=== PATIENT | female | born 1955 | race African-American/Black ===

== ENCOUNTER 2020-03-09 15:45 | Inpatient (IN) | payer BC ==
[~2020-03-09] VITALS: Ht 165.1 cm; Wt 137.0 kg
[2020-03-09 16:42] LABS: BASOPHILS % 1.1 % (0.0-2.0); EOSINOPHILS % 5.2 % (0.0-5.0); HEMATOCRIT. 40.8 % (36.0-48.0); HEMOGLOBIN. 13.7 g/dL (12.0-16.0); LYMPHOCYTES % 42.6 % (20.0-50.0); MEAN CORPUSCULAR HEMOGLOBIN 29.7 pg (28.0-32.0); MEAN CORPUSCULAR VOLUME 88.6 fL (81.0-99.0); MEAN PLATELET VOLUME 8.7 fl (7.4-10.4); MONOCYTES % 6.7 % (2.0-8.0); NEUTROPHILS % 44.4 % (40.0-76.0); PLATELET 301 x1000/uL (130-400); RED BLOOD CELL COUNT 4.61 mill/uL (4.2-5.4); RED CELL DISTRIBUTION WIDTH 14.2 % (11.6-14.6)
[2020-03-09 16:44] LABS: CHLORIDE 102 mEq/L (98-107)
[2020-03-09] MEDS ORDERED: CLONIDINE 0.1MG TABLET PO ONE (16:45)
[2020-03-09 16:48] LABS: ETHANOL BLOOD < 10 mg/dL
[2020-03-09 16:49] LABS: PROTHROMBIN TIME 10.5 sec (9.6-11.0)
[2020-03-09 16:52] LABS: LDL CHOLESTEROL 178 mg/dL (5-100)
[2020-03-09] MEDS ORDERED: ASPIRIN 325MG EC TABLET PO NR (17:15)
[2020-03-09 18:21] LABS: CLARITY URINE CLEAR (CLEAR); COLOR URINE YELLOW (YELLOW); KETONES URINE NEGATIVE (NEGATIVE); LEUKOCYTE ESTERASE URINE TRACE (NEGATIVE); NITRITE URINE NEGATIVE (NEGATIVE); OCCULT BLOOD URINE NEGATIVE (NEGATIVE); PROTEIN URINE NEGATIVE (NEGATIVE); SPECIFIC GRAVITY URINE 1.012 (1.005-1.030); UROBILINOGEN URINE 0.2 E.U./dL (0.2-1.0)
[2020-03-09 18:47] LABS: *COCAINE SCREEN URINE NEGATIVE (NEGATIVE); METHADONE URINE SCREEN NEGATIVE (NEGATIVE); OPIATES URINE SCREEN NEGATIVE (NEGATIVE)
[2020-03-09 18:48] LABS: *AMPHETAMINES SCREEN URINE NEGATIVE (NEGATIVE); *BARBITURATES SCREEN URINE NEGATIVE (NEGATIVE); *BENZODIAZEPINES SCREEN URINE NEGATIVE (NEGATIVE); CANNABINOID URINE SCREEN NEGATIVE (NEGATIVE); PHENCYCLIDINE URINE SCREEN NEGATIVE (NEGATIVE)
[2020-03-09] MEDS ORDERED: IOHEXOL-350 100 ML BOTTLE ONE (22:11)
[2020-03-09 22:38] VITALS: BP 135/74
[2020-03-09 22:55] VITALS: BP 135/75
[2020-03-09] MEDS ORDERED: CLONIDINE 0.1MG TABLET PO PRN (23:00)
[2020-03-09] MEDS ORDERED: DIPHENHYDRAMINE 50MG/ML VIAL IV PRN (23:00)
[2020-03-09] MEDS ORDERED: ACETAMINOPHEN 325MG TABLET PO PRN ×2 (23:00)
[2020-03-09] MEDS ORDERED: ONDANSETRON HCL 4MG/2ML INJ IV PRN (23:00)
[2020-03-09] MEDS ORDERED: MAGNESIUM/ALUMINUM HYDROXIDE/SIMETHICONE 30ML UDC PO PRN (23:00)
[2020-03-09] MEDS ORDERED: ZOLPIDEM TARTRATE 5MG TABLET PO PRN (23:00)
[2020-03-10] VITALS (11 sets, daily range): BP systolic 121–151; BP diastolic 55–97
[2020-03-10] MEDS: SODIUM CHLORIDE 0.9% INJ 3ML FLUSH IVF SCH ×2 (06:52→13:56)
[2020-03-10] MEDS ORDERED: AMLODIPINE 5MG TABLET PO SCH (09:00)
[2020-03-10] MEDS ORDERED: LORAZEPAM 2MG/ML CPJ IV SCH (09:45)
== END 2020-03-10 18:47 | disposition home or self-care (01) | DRG 69 ==
LOC: ER 15:45 → 3WST 19:40 → EDBEDREQTM 20:01 → EDBEDREQ 20:01 → ENRESERV 20:28
PROVIDERS: ADMIT Internal Medicine; ATTEND Internal Medicine
DX: G45.9 Transient cerebral ischemic attack, unspecified (principal); I10 Essential (primary) hypertension; E78.00 Pure hypercholesterolemia, unspecified; Z79.82 Long term (current) use of aspirin; Z79.899 Other long term (current) drug therapy; Z82.49 Family history of ischemic heart disease and other diseases of the circulatory system; Z83.3 Family history of diabetes mellitus; Z90.710 Acquired absence of both cervix and uterus; Z91.14 Patient's other noncompliance with medication regimen
CPT/HCPCS: 36415; 70496; 70498; 70551; 71045; 80053; 80061; 80305; 80320; 81003; 82962; 83036; 83721; 83735; 84484; 85025; 93005; 93306; 99291; J2060; Q9967; G0480